=== PATIENT | female | born 1985 ===

== ENCOUNTER 2020-10-31 19:52 | Emergency (ER) | payer OTHER ==
[2020-10-31] MEDS ORDERED: ONDANSETRON 4 MG ODT TAB PO ONE (20:03)
[2020-10-31] MEDS ORDERED: HYDROcodone/ACETAMINOPHEN 5-325 MG TAB PO ONE (20:03)
[2020-10-31] MEDS ORDERED: ONDANSETRON 4 MG/2 ML INJ IV ONE (21:26)
[2020-10-31] MEDS ORDERED: MORPHINE 4 MG/1 ML INJ IV ONE (21:26)
[2020-10-31] MEDS ORDERED: KETOROLAC 30 MG/1 ML INJ IV ONE (21:27)
--- NOTE | 2020-10-31 21:28 | XRay Report ---
LEFT HIP 2 VIEW(S) INDICATION / CLINICAL INFORMATION: MAIN COMPARISON: None available. FINDINGS: BONES / JOINT(S): No acute fracture or subluxation. No significant arthritis. SOFT TISSUES: No significant abnormality. ADDITIONAL FINDINGS: None. Signer Name: Corey Lucero MD Signed: 10/31/2020 9:24 PM Workstation Name: [id number]
--- NOTE | 2020-10-31 21:31 | XRay Report ---
LEFT HAND 3 VIEW(S) INDICATION / CLINICAL INFORMATION: MAIN COMPARISON: None available. FINDINGS: BONES / JOINT(S): No definite acute fracture or subluxation. No significant arthritis. SOFT TISSUES: Tiny radiopaque focus between the superficial subcutaneous soft tissues at the bases of the long finger and ring finger proximal phalanges. Additionally there is a 5 mm triangular focus wh ich is not quite metallic density in the subcutaneous soft tissues at the base of the palm at the lev el of the wrist joint. Foreign object not excluded. Recommend clinical correlation and further evalua tion as warranted. ADDITIONAL FINDINGS: None. Signer Name: Corey Lucero MD Signed: 10/31/2020 9:27 PM Workstation Name: [id number]
--- NOTE | 2020-10-31 21:32 | XRay Report ---
CERVICAL SPINE 5 VIEWS INDICATION / CLINICAL INFORMATION: MAIN. COMPARISON: None available. FINDINGS: VERTEBRAE: No acute fracture. No significant malalignment. DISC SPACES / FACET JOINTS:No significant abnormality. PARASPINAL SOFT TISSUES:No significant abnormality. ADDITIONAL FINDINGS: None. Signer Name: Corey Lucero MD Signed: 10/31/2020 9:28 PM Workstation Name: [id number]
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
[2020-10-31 23:14] VITALS: BP 140/87
== END 2020-10-31 23:10 | disposition home or self-care (01) ==
LOC: ED 19:52
DX: S16.1XXA Strain of muscle, fascia and tendon at neck level, initial encounter (principal); S60.222A Contusion of left hand, initial encounter; S76.012A Strain of muscle, fascia and tendon of left hip, initial encounter; E11.9 Type 2 diabetes mellitus without complications; Z79.899 Other long term (current) drug therapy; Z88.2 Allergy status to sulfonamides; Z91.041 Radiographic dye allergy status; X58.XXXA Exposure to other specified factors, initial encounter; Y93.89 Activity, other specified; Y92.89 Other specified places as the place of occurrence of the external cause; Y99.8 Other external cause status
CPT/HCPCS: 72040; 73130; 73502; 96374; 96375; 99284; J1885; J2270; J2405; Q0162